=== PATIENT | male | born 1955 | race Caucasian/White ===

== ENCOUNTER → 2022-07-07 11:23 | Outpatient (CLI) | payer BC, SELFPAY ==
--- NOTE | 2022-07-07 11:29 | XR_ITS ---
FINAL REPORT CLINICAL HISTORY: toe pain FINDINGS: AP, oblique, and lateral views of the left ankle were obtained. There is no prior exam for comparison. There is no fracture or dislocation. There is mild degenerative disease. Soft tissues are normal. 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 Reviewed, Interpreted and Dictated by Demi Thomas MD Transcribed by Yandy Turner Authenticated and [facility]
--- NOTE | 2022-07-07 11:29 | XR_ITS ---
FINAL REPORT CLINICAL HISTORY: toe pain FINDINGS: AP, oblique, and lateral views of the right ankle were obtained. There is no prior exam for comparison. There is no fracture or dislocation. There is mild degenerative disease. Soft tissues are normal. IMPRESSION: Mild degenerative disease with no acute osseous abnormality of the right ankle. Reviewed, Interpreted and Dictated by Demi Thomas MD Transcribed by Yandy Turner Authenticated and [facility]
== END ==
PROVIDERS: PCP Family Medicine; Visit Provider Podiatrist
DX: M25.571 Pain in right ankle and joints of right foot (principal); M79.671 Pain in right foot; M79.672 Pain in left foot; M25.572 Pain in left ankle and joints of left foot
CPT/HCPCS: 73610